=== PATIENT | female | born 1980 | race Caucasian/White ===

== ENCOUNTER 2023-06-10 11:25 | Day surgery (SDC) | payer BC, OTHER ==
[~2023-06-10] VITALS: Ht 165.1 cm; Wt 106.5 kg
[~2023-06-10 11:25] MED LIST: HYDR200T46 PO; IBUP200C33 PO; NS 1,000 ML IV ONE; OMEP-173 PO; THERTAB52 PO
[2023-06-10] MEDS ORDERED: LIDOCAINE 2% 100MG/5ML SDV (FOR ANES.) As Ordered ONE (12:07)
[2023-06-10] MEDS ORDERED: fentaNYL 100 MCG/2 ML INJECTION As Ordered ONE (12:07)
[2023-06-10] MEDS ORDERED: propofoL 200 MG/20 ML VIAL As Ordered ONE (12:10)
[2023-06-10 13:40] VITALS: TEMP 98.4
[2023-06-10 14:00] VITALS: BP 146/74; O2SAT 100
== END 2023-06-10 14:05 | disposition home or self-care (01) ==
LOC: M OPP 11:25
PROVIDERS: ATTEND Internal Medicine Gastroenterology
DX: K22.2 Esophageal obstruction (principal); R13.10 Dysphagia, unspecified; R12 Heartburn; Z79.1 Long term (current) use of non-steroidal anti-inflammatories (NSAID); Z79.2 Long term (current) use of antibiotics; Z79.899 Other long term (current) drug therapy; Z88.1 Allergy status to other antibiotic agents; Z88.2 Allergy status to sulfonamides; Z88.5 Allergy status to narcotic agent; Z91.012 Allergy to eggs; Z91.018 Allergy to other foods
CPT/HCPCS: 43249; J3010

== ENCOUNTER → 2023-08-11 | Outpatient (CLI) | payer BC, OTHER ==
[~2023-08-11] MED LIST changes: +E-Z-GAS II EFFERVESCENT PACKET (SODIUM BICARB./CITRIC ACID/SIMETHICONE) As Ordered ONE; +E-Z-HD 98% w/w 340GM SUSP BTL As Ordered ONE; +E-Z-PAQUE 96% w/w SUSP 176GM BTL As Ordered ONE; -NS 1,000 ML IV ONE
== END ==
LOC: M RAD 09:12
PROVIDERS: ATTEND Physician Assistant Medical
DX: R13.10 Dysphagia, unspecified (principal); K21.9 Gastro-esophageal reflux disease without esophagitis; K44.9 Diaphragmatic hernia without obstruction or gangrene

== ENCOUNTER → 2024-07-14 | Outpatient (REF) ==
[~2024-07-14] MED LIST changes: -E-Z-GAS II EFFERVESCENT PACKET (SODIUM BICARB./CITRIC ACID/SIMETHICONE) As Ordered ONE; -E-Z-HD 98% w/w 340GM SUSP BTL As Ordered ONE; -E-Z-PAQUE 96% w/w SUSP 176GM BTL As Ordered ONE
== END ==
LOC: M SLEEP HO 10:00
PROVIDERS: ATTEND Registered Nurse
DX: G47.33 Obstructive sleep apnea (adult) (pediatric) (principal)